=== PATIENT | female | born 1930 | race Caucasian/White ===

== ENCOUNTER 2019-12-31 19:13 | Emergency (ER) | payer OTHER, BC ==
[~2019-12-31] VITALS: Ht 160 cm; Wt 45.4 kg
[2019-12-31 19:25] VITALS: Ht 160 cm; Wt 45.4 kg
[2019-12-31 21:14] LABS: BASOPHIL % 0.2 % (0-2); PLATELET COUNT 303 x10^3mcL (130-400); RED CELL DISTRIBUTION WIDTH 13.4 % (11.5-14.5)
[2019-12-31 22:17] LABS: CALCIUM 9.1 mg/dL (8.5-10.1); CARBON DIOXIDE 26.8 mmol/L (21-32); CHLORIDE SERUM 101 mmol/L (98-107); CREATININE SERUM 1.4 mg/dL (0.6-1.0); GLUCOSE SERUM 122 mg/dL (74-106); POTASSIUM SERUM 4.6 mmol/L (3.5-5.1); SODIUM SERUM 136 mmol/L (136-145)
[2019-12-31 22:22] LABS: ALBUMIN 3.3 g/dL (3.4-5.0); ALKALINE PHOSPHATASE 73 U/L (46-116); ALT/SGPT 29 U/L (14-59); AST/SGOT 29 U/L (15-37); CHOLESTEROL 136 mg/dL (<200); HDL CHOLESTEROL 65 mg/dL (40-60); TOTAL PROTEIN, SERUM 7.3 g/dL (6.4-8.2)
[2020-01-01 07:02] VITALS: BP 159/59
== END 2020-01-01 07:02 | disposition home or self-care (01) ==
LOC: ED 19:13
PROVIDERS: Emergency Medicine
DX: R53.1 Weakness (principal); R55 Syncope and collapse; E86.0 Dehydration; I12.9 Hypertensive chronic kidney disease with stage 1 through stage 4 chronic kidney disease, or unspecified chronic kidney disease; N18.9 Chronic kidney disease, unspecified; Z88.5 Allergy status to narcotic agent
CPT/HCPCS: Q0092

== ENCOUNTER 2020-06-22 20:33 | Emergency (ER) | payer OTHER, BC ==
[~2020-06-22] VITALS: Ht 99.1 cm; Wt 46.7 kg
[2020-06-22 20:38] VITALS: Ht 99.1 cm; Wt 46.7 kg
[2020-06-23 07:10] VITALS: BP 167/65
== END 2020-06-23 07:10 | disposition home or self-care (01) ==
LOC: ED 20:33
DX: L76.22 Postprocedural hemorrhage of skin and subcutaneous tissue following other procedure (principal); I12.9 Hypertensive chronic kidney disease with stage 1 through stage 4 chronic kidney disease, or unspecified chronic kidney disease; N18.9 Chronic kidney disease, unspecified; Z85.3 Personal history of malignant neoplasm of breast; Z88.0 Allergy status to penicillin; Z95.0 Presence of cardiac pacemaker; Z88.1 Allergy status to other antibiotic agents; Z88.5 Allergy status to narcotic agent; Z88.8 Allergy status to other drugs, medicaments and biological substances
CPT/HCPCS: J2001